=== PATIENT | male | born 1940 | race Caucasian/White ===

== ENCOUNTER 2023-08-12 09:32 | Emergency (ER) | payer MEDICARE, BC, SELFPAY ==
[2023-08-12 09:40] VITALS: BP 151/99
[2023-08-12 11:03] VITALS: BP 151/97
--- NOTE | 2023-08-12 11:07 | ED.GENMED ---
History of Present Illness
<Tereza Matthews PA-C - Last Filed: 08/15/23 17:37>
General
Chief Complaint: Weakness
Source: patient and managed care coordinator
Exam Limitations: none
Time Seen by Provider: 08/12/23 10:45
Nursing documentation reviewed up to this point in time: agreed with
Travel History
Have you had any contact with someone who has COVID-19?: No
Do you have any symptoms of coronavirus? Fever > 100 degrees, chills, cough, shortness of breath, sore throat, loss of taste or smell, muscle aches, or headache?: No
History of Present Illness
History of Present Illness:
Patient is a 83 year old male with past medical history HTN, HLD, DM, afib on xarelto presenting to the emergency department for evaluation of instability and confusion. Patient is denying any complaints at the moment. Patient's friend/ caregiver
states that he seemed more unstable on his feet and more confused this morning than usual and brought him in for evaluation. No recent viruses/illnesses. No recent falls or trauma.
Patient denies any chest pain, shortness of breath, abdominal pain, headache, vision changes, or weakness. He denies any urinary symptoms or recent fever/chills.
Patients friend states that he has been in atrial fibrillation for many years. He takes a beta ursula to control heart rate as he has refused cardioversion in the past. He is mostly compliant with medications but does miss doses occasionally.
Past History
<Tereza Matthews PA-C - Last Filed: 08/15/23 17:37>
Past History
ED Past Medical History: CAD, Cancer (Bladder), HTN, Hypercholesterolemia and NIDDM
ED Past Surgical History: Other (N/A)
Social History
Tobacco: Former smoker
Alcohol: None
Drug: None
Personal:
Living: with family
Employment: Retired
Family History
Family History: Other (n/c)
Phy Exam
<Tereza Matthews PA-C - Last Filed: 08/15/23 17:37>
Physical Exam
Physical Exam:
General: Well appearing and non-toxic, vital signs reviewed- patient afebrile
HEENT: Atraumatic, normocephalic; pupils equal round reactive light bilaterally, protecting airway
Neck: appears supple, normal range of motion, no JVD
CV: Tachycardic, regular rhythm, no evidence of cyanosis
Resp: No evidence of respiratory distress, lungs clear, no accessory muscle use
Abd: Soft, nontender, non-distended
Extremities: No deformities, no evidence of cyanosis or edema, strength 5 out of 5 in upper and lower extremities
Neuro: alert and oriented x 1 to person, not place or time; speech normal, no focal neurologic deficits, normal finger-nose
Psych: Somewhat agitated
Skin: Intact, no rashes
Course
<Tereza Matthews PA-C - Last Filed: 08/15/23 17:37>
Orders/Labs/Results
Orders:
Orders
08/12/23 11:07
CMP [Comprehensive Metabolic Panel] Urgent
08/12/23 11:08
Complete Blood Count/With Diff Routine
08/12/23 11:27
Electrocardiogram (*1) Urgent
Reason for Study: Fatigue / Weakness
CT Head W/o Iv Contrast Urgent
Comment:
Reason For Exam: confusion
EKG- Treatment ONCE
08/12/23 11:57
Protime/PTT Urgent
08/12/23 11:59
Nicardipine 40 mg/200 ml [Cardene] 40 mg in 200 ml .ROUTE .STK-MED
08/12/23 12:05
Prothrombin Complex(Pcc),Human [Kcentra] 2,608 unit Empty Viaflex Container 100 ml [Viaflex Empty Container] 100 ml IV NOW
Does patient have a dx of serious acute active bleeding?: Yes
Does patient have prior history of HIT?: No
Urgent surgery/invasive procedure planned in next 6 hours?: No
08/12/23 12:23
COVID-19 Antigen Urgent
Source: Nasal Swab
Influenza A+B Rapid Molecular Urgent
ENRIQUE Source: Nasal Swab
Specimen Description:
08/12/23 12:30
Nicardipine 40 mg/200 ml [Cardene] 40 mg in 200 ml IV PER PROTOCOL
Abnormal Lab Results
08/12/23 08/12/23 08/12/23
11:07 11:08 11:57
RDW 14.9 H %
(11.5-14.5)
MPV 10.8 H fL
(7.4-10.4)
Absolute Neuts (auto) 6.8 H 10^3/uL
(1.4-6.5)
Absolute Lymphs (auto) 0.9 L 10^3/uL
(1.2-3.4)
Neutrophils % 80.8 H %
(42.2-75.2)
Lymphocytes % 10.3 L %
(20.5-51.1)
PT 25.1 H Sec
(11.4-14.6)
APTT 43.9 H Sec
(23.4-35.0)
Chloride 97 L mmol/L
(98-107)
Glucose 209 H mg/dl
(70-99)
08/12/23 11:08
08/12/23 11:07
Vital Signs
Initial and Last Documented VS:
Initial Vital Signs
Temp Pulse Resp BP Pulse Ox
98.3 F 97 16 151/99 98
08/12/23 09:40 08/12/23 09:40 08/12/23 09:40 08/12/23 09:40 08/12/23 09:40
Last Documented Vital Signs
Temp Pulse Resp BP Pulse Ox
98.3 F 106 29 135/58 96
08/12/23 09:40 08/12/23 12:49 08/12/23 12:49 08/12/23 12:49 08/12/23 12:53
<Priyank Hayes, DO - Last Filed: 08/18/23 09:10>
Orders/Labs/Results
Orders:
Orders
08/12/23 11:07
CMP [Comprehensive Metabolic Panel] Urgent
08/12/23 11:08
Complete Blood Count/With Diff Routine
08/12/23 11:27
Electrocardiogram (*1) Urgent
Reason for Study: Fatigue / Weakness
CT Head W/o Iv Contrast Urgent
Comment:
Reason For Exam: confusion
EKG- Treatment ONCE
08/12/23 11:57
Protime/PTT Urgent
08/12/23 11:59
Nicardipine 40 mg/200 ml [Cardene] 40 mg in 200 ml .ROUTE .STK-MED
08/12/23 12:05
Prothrombin Complex(Pcc),Human [Kcentra] 2,608 unit Empty Viaflex Container 100 ml [Viaflex Empty Container] 100 ml IV NOW
Does patient have a dx of serious acute active bleeding?: Yes
Does patient have prior history of HIT?: No
Urgent surgery/invasive procedure planned in next 6 hours?: No
08/12/23 12:23
COVID-19 Antigen Urgent
Source: Nasal Swab
Influenza A+B Rapid Molecular Urgent
ENRIQUE Source: Nasal Swab
Specimen Description:
08/12/23 12:30
Nicardipine 40 mg/200 ml [Cardene] 40 mg in 200 ml IV PER PROTOCOL
Abnormal Lab Results
08/12/23 08/12/23 08/12/23
11:07 11:08 11:57
RDW 14.9 H %
(11.5-14.5)
MPV 10.8 H fL
(7.4-10.4)
Absolute Neuts (auto) 6.8 H 10^3/uL
(1.4-6.5)
Absolute Lymphs (auto) 0.9 L 10^3/uL
(1.2-3.4)
Neutrophils % 80.8 H %
(42.2-75.2)
Lymphocytes % 10.3 L %
(20.5-51.1)
PT 25.1 H Sec
(11.4-14.6)
APTT 43.9 H Sec
(23.4-35.0)
Chloride 97 L mmol/L
(98-107)
Glucose 209 H mg/dl
(70-99)
08/12/23 11:08
08/12/23 11:07
Vital Signs
Initial and Last Documented VS:
Initial Vital Signs
Temp Pulse Resp BP Pulse Ox
98.3 F 97 16 151/99 98
08/12/23 09:40 08/12/23 09:40 08/12/23 09:40 08/12/23 09:40 08/12/23 09:40
Last Documented Vital Signs
Temp Pulse Resp BP Pulse Ox
98.3 F 106 29 135/58 96
08/12/23 09:40 08/12/23 12:49 08/12/23 12:49 08/12/23 12:49 08/12/23 12:53
<Tereza Matthews PA-C - Last Filed: 08/15/23 17:37>
MDM/Problems Addressed
Differential Diagnosis Includes:
Atrial fibrillation, electrolyte derangements, UTI, CVA, hypoglycemia, anemia, viral illness (covid/flu), CVA
MDM/Problems Addressed:
Patient is an 83 year old male presenting with caregiver for evaluation of increasing instability and confusion this morning. No complaints at this time. No chest pain, shortness of breath, weakness, urinary symptoms. He is mostly complaint with
medications. He is hemodynamically stable upon arrival to emergency department today, afebrile. Physical exam as documented above. No neurologic deficits on exam, normal finger to nose. He is alert, oriented x 1 to person; not place, time. Unsure if
this is worse than his baseline confusion. Tachycardic, irregular rhythm on heart exam, lungs clear. Will check basic labs, EKG, UA. Will check covid/ flu swabs. Given change in mental status - will CT head. Will reassess.
CBC without any clinically significant abnormalities. CMP with hyperglycemia of 200- patient reports did not take insulin last night. Otherwise no clinically significant abnormalities.
CT scan showed large acute intraventricular hemorrhage. Starting Kcentra. Started nicardipine drip for blood pressure control. Will order coag studies. Transfer initiated to [facility] - Dr. Galindo is accepting physician.
Chronic conditions affecting care:
HTN, HLD, atrial fibrillation, DM
Acute Exacerbation and/or Progression of Chronic Illness:
Acute intraventricular hemorrhage
<Tereza Matthews PA-C - Last Filed: 08/15/23 17:37>
*Radiology
Radiology exam reviewed: preliminary read by ED provider and radiology read reviewed
*Pulse Oximetry
Patient hypoxic: no
*EKG
Interpreted by ED Provider?: Yes
EKG Intrepretation Date: 08/12/23
Interpretation: abnormal
Comparison EKG: changes noted
Heart Rate: 117
Rate: tachycardiac
Rhythm: a-fib
[place]: left axis deviation
Interval: normal interval
QRS Pattern: normal QRS
Ischemia: no ischemia
*[facility] Lay Out Specialist Interpretation
Rate: tachycardiac
Interpretation: abnormal
Heart Rate: 120
Rhythm: a-fib
*Critical Care Note
Total Time (30-74mins, 75-104mins- exclusive of procedures): Not Applicable
<Priyank Hayes DO - Last Filed: 08/18/23 09:10>
*Critical Care Note
Total Time (30-74mins, 75-104mins- exclusive of procedures): 30
comment:
Critical care statement: A total of 30 minutes of critical care time was provided for this patient. This includes management of unstable vital signs, evaluation of the patient at bedside, reviewing the patient's pertinent medical records, discussion
with consultants, review of old EKGs and review of pertinent medical records. This time with separate from time utilized to perform the aforementioned documented procedures
ED Attending Note
<Tereza Matthews PA-C - Last Filed: 08/15/23 17:37>
-
Portions of this chart may have been created with voice recognition software.� Occasional wrong word or��sound alike� substitutions may have occurred due to the inherent limitations of voice recognition software.
<Priyank Hayes DO - Last Filed: 08/18/23 09:10>
ED Attending Note
Patient seen and examined by attending physician: Yes
I performed the substantive portion of visit, reviewed & personally made and approve the management plan that is documented in note by myself or SUDHAKAR.: Yes
I performed a history and physical exam of patient and discussed management with resident, I reviewed resident's note and agree with documented findings and plan of care.: Yes
ED Attending Note:
Physical Exam
General: Afebrile blood pressure 145/100
Neck: supple. no meningeal signs. normal posterior pharynx
Heart: s1/s2 tachycardic, no murmur. equal radial
pulses.
HEENT: Pupils equal round reactive to light, EOMI
Lungs: no acute respiratory distress. clear bilaterally
Abdomen: normal bowel sounds. not tender. no CVAT
Neuro: alert and oriented to person. no focal neurological deficits cranial nerves II through XII intact
Skin: no rash
Psychiatric: well kept. interactive and cooperative
Extremities: no edema. no calf tenderness. negative homans. good distal pulses
Patient with intraventricular hemorrhage, Kcentra given, Mateo smith, transfer to [facility]. Discussed with neurosurgery at [facility], Dr. Ordonez, Critical care Dr. Galindo accepts to ICU.
Discharge Plan
Departure
Patient Disposition: Acute Care Hospital
Date of Disposition: 08/12/23
Time of Disposition: 12:06
Discharge Problem:
Intraventricular hemorrhage
Prescriptions:
No Action
lisinopril 20 MG tablet
20 mg PO DAILY
metformin 1,000 MG tablet
1,000 mg PO BID@0800,1700
insulin asp prt-insulin aspart [Novolog Mix 70-30FlexPen U-100] 300 UNITS/3 ML insulin pen
18 units SC BID@0800,1700 Qty: 5 0RF
Rx Instructions:
E11.65
Take 18 units with breakfast and 18 units with dinner
pravastatin 40 MG tablet
40 mg PO DAILY@1600
acetaminophen [Tylenol Extra Strength] 500 MG tablet
1,000 mg PO DAILYPRN PRN (Reason: MILD PAIN/MCMAHON)
Xarelto 20 MG tablet
20 mg PO QPM Qty: 30 6RF
furosemide 40 MG tablet
40 mg PO DAILY Qty: 90 2RF
magnesium oxide 500 MG capsule
500 mg PO DAILY Qty: 90 2RF
metoprolol succinate 25 MG tablet extended release 24 hr
50 mg PO DAILY
Referrals:
NONE,* [Family Provider] -
Hospital Transfer
Other hospital: [facility]
I certify that the patient requires transfer: Yes
Discussed case with accepting physician: Dr. Galindo
Reason for transfer: higher level of care and specialties available
Interventions
Interventions:
*Risk Screen - Suicide Last Done: 08/12/23 09:40
*General Assessment Last Done: 08/12/23 09:40
*Neglect/Abuse Screening Last Done: 08/12/23 09:40
ED- Fall Risk Assessment Last Done: 08/12/23 11:01
*ED COVID-19 Vaccine History Last Done: 08/12/23 11:01
*Nursing Disposition Last Done: 08/12/23 13:06
ED- Cardiac Assessment Last Done: 08/12/23 11:01
ED- Neurological Assessment Last Done: 08/12/23 12:01
ED- Pulmonary Assessment Last Done: 08/12/23 11:01
Discharge Date and Time
Discharge Date/Time: 08/12/23 13:08
[2023-08-12 11:08] VITALS: BMI 34.4
[2023-08-12 11:26] LABS: % Basophils 0.7 % (0-2); % Eosinophils 0.4 % (0-6); % Immature Granulocytes 0.4 % (0-0.5); % Lymphocytes 10.3 % (20.5-51.1); % Monocytes 7.4 % (1.7-9.3); % Neutrophils 80.8 % (42.2-75.2); Absolute Basophils 0.1 10^3/uL (0-0.2); Absolute Lymphocytes 0.9 10^3/uL (1.2-3.4); Absolute Monocytes 0.6 10^3/uL (0.1-0.6); Absolute Neutrophils 6.8 10^3/uL (1.4-6.5); Hematocrit 43.2 % (39.0-52.0); Hemoglobin 14.3 g/dL (13.0-18.0); Mean Corp Hgb Conc. 33.1 g/dL (33.0-37.0); Mean Corpuscular Hgb 27.9 pg (27.0-31.0); Mean Corpuscular Volume 84.2 fL (80.0-94.0); Mean Platelet Volume 10.8 fL (7.4-10.4); Nucleated Red Blood Cells % 0 % (-); Platelet Count 205 10^3/uL (130-400); Red Blood Cell Count 5.13 10^6/uL (4.70-6.10); Red Cell Dist. Width 14.9 % (11.5-14.5); White Blood Cell Count 8.4 10^3/uL (4.8-10.8)
[2023-08-12 11:44] LABS: ALT (SGPT) 17 U/L (0-50); AST (SGOT) 25 U/L (17-59); Alkaline Phosphatase 100 U/L (38-126); Blood Urea Nitrogen 19 mg/dl (9-20); Calcium 9.7 mg/dl (8.4-10.2); Carbon Dioxide 27 mmol/L (22-30); Chloride 97 mmol/L (98-107); Estimated Creatinine Clearance 75 ml/min; Glucose 209 mg/dl (70-99); Potassium 4.1 mmol/L (3.5-5.1); Sodium 139 mmol/L (135-145); Total Bilirubin 1.3 mg/dl (0.2-1.3); Total Protein 7.4 g/dl (6.3-8.2); eGFR > 60.00
[2023-08-12 12:02] VITALS: BP 143/80
[2023-08-12 12:15] VITALS: BP 152/108
[2023-08-12] MEDS: KCENTRA 100 UNIT IV (12:16)
[2023-08-12] MEDS: CARDENE 200 IV (12:25)
[2023-08-12 12:27] LABS: INR 2.24; PT 25.1 Sec (11.4-14.6)
[2023-08-12 12:28] LABS: APTT 43.9 Sec (23.4-35.0)
[2023-08-12 12:30] VITALS: BP 145/100
[2023-08-12 12:49] VITALS: BP 135/58
[2023-08-12 13:08] LABS: COVID-19 Antigen Negative (Negative)
== END 2023-08-12 13:08 | disposition short-term general hospital (02) ==
LOC: EMR 09:32
PROVIDERS: Emergency Medicine; Physician Assistant; EMERGENCY PHYSICIAN Emergency Medicine
DX: I61.5 Nontraumatic intracerebral hemorrhage, intraventricular (principal); I48.91 Unspecified atrial fibrillation; E11.65 Type 2 diabetes mellitus with hyperglycemia; E78.00 Pure hypercholesterolemia, unspecified; I10 Essential (primary) hypertension; Z11.52 Encounter for screening for COVID-19; Z79.01 Long term (current) use of anticoagulants; Z87.891 Personal history of nicotine dependence
CPT/HCPCS: 99291; 96365; 96375; 70450; 80053; 85025; 85610; 85730; 87502; 87811; 93005; J7168